=== PATIENT | male | born 1960 | race Caucasian/White ===

== ENCOUNTER 2018-12-06 12:37 | Day surgery (SDC) | payer OTHER ==
[2018-12-06] MEDS ORDERED: LIDOCAINE 4% SOLUTION 50 ML BTL (14:20)
[2018-12-06] MEDS ORDERED: MIDAZOLAM 1 MG/ML 2 ML INJ ×3 (15:17)
[2018-12-06] MEDS ORDERED: FENTAnyl 50 MCG/ML VIAL ×2 (15:17)
== END 2018-12-06 16:29 | disposition home or self-care (01) ==
LOC: GIL 12:37
DX: Z12.11 Encounter for screening for malignant neoplasm of colon (principal); K64.4 Residual hemorrhoidal skin tags; D12.4 Benign neoplasm of descending colon; D12.0 Benign neoplasm of cecum; K20.8 Other esophagitis; I85.10 Secondary esophageal varices without bleeding; K29.00 Acute gastritis without bleeding; K76.6 Portal hypertension; K31.89 Other diseases of stomach and duodenum; F17.200 Nicotine dependence, unspecified, uncomplicated; Z79.82 Long term (current) use of aspirin
CPT/HCPCS: 43235; 82962; 88305